=== PATIENT | female | born 1995 | race Asian ===

== ENCOUNTER 2019-12-06 21:52 | Emergency (ER) | payer OTHER ==
[~2019-12-06] VITALS: Ht 177.8 cm; Wt 61.2 kg
[2019-12-06 22:42] VITALS: BP 111/65; TEMP 98.5
== END 2019-12-06 23:17 | disposition home or self-care (01) ==
LOC: ED 21:52
DX: R51.9 Headache, unspecified (principal)
CPT/HCPCS: 99281